=== PATIENT | female | born 1945 | race Caucasian/White ===

== ENCOUNTER 2021-05-25 14:50 | Inpatient (IN) | payer MEDICARE, OTHER ==
[~2021-05-25] VITALS: Ht 172.7 cm; Wt 49.9 kg
[2021-05-25 15:26] VITALS: BP 181/97
[2021-05-25] MEDS ORDERED: THYR90TA PO (15:45)
--- NOTE | 2021-05-25 15:45 | NUR ---
RECEIVED PT FORM SOH TO ARU, PT ON ROOM AIR, NO SIGNS OF RESP DISTRESS, NO REPORTS OF PAIN. PT HAS SWANN CATH IN PLACE, DRAINING YELLOW URINE. PT A/OX4, BED LOW AND LOCKED, CALL LIGHT WITHIN REACH, VS TAKEN, PT HAS TEWMP OF 99.4 AND BP 181/97. NOTIFIED.
[2021-05-25 19:47] VITALS: BP 143/73
--- NOTE | 2021-05-25 21:26 | NUR ---
Resting in bed upon initial rounds. AAOx4 Needs attended. Fall precautions maintained. Call aponte within reach. Siderails up for safety. Admitted for generalized weakness, frequent falls. Fernandes catheter intact draining well. Patient incontinent of BM. No BM noted this shift. VSS. BP 143/75 HR 92 Resp 18 Afebrile. 97% on RA. No complaints presented during shift.
[2021-05-26 08:00] VITALS: BP 117/82
[2021-05-26 16:00] VITALS: BP 161/89
[2021-05-26] MEDS ORDERED: ENOX40DI SQ (16:49)
[2021-05-26 20:00] VITALS: BP 155/83
[2021-05-26] MEDS: ACETAMINOPHEN 325 MG TABLET PO PRN (20:53)
[2021-05-27 04:00] VITALS: BP 162/83
--- NOTE | 2021-05-27 07:50 | NUR ---
received sleeping easily arousable. denies pain or sob. no complaints at this time. safety measures in place. kept comfortable. call light in reach and functional.
[2021-05-27 08:00] VITALS: BP 170/90
[2021-05-27] MEDS ORDERED: Medication Not On Formulary EA (Thyroid (Armour Thyroid) 90 MG) PO SCH (09:00)
[2021-05-27] MEDS: METOPROLOL TARTRATE 50 MG TABLET PO SCH ×2 (09:10→22:08)
[2021-05-27] MEDS: ENOXAPARIN SODIUM 40 MG/0.4 ML DISP.SYRIN SQ SCH (09:11)
[2021-05-27] MEDS ORDERED: hydrALAZINE HCL 25 MG TABLET PO PRN (09:15)
[2021-05-27 10:31] LABS: HEMATOCRIT 40.2 % (31.2-41.9); MEAN CORPUSCULAR VOLUME 89.5 fL (75.5-95.3); PLATELET COUNT (AUTO) 377 K/uL (179-408)
[2021-05-27 11:13] LABS: BILIRUBIN,TOTAL 0.6 mg/dL (0.2-1.0); CREATININE 0.8 mg/dL (0.6-1.3); MAGNESIUM 2.1 mg/dL (1.8-2.4); PHOSPHOROUS 3.2 mg/dL (2.5-4.9); POTASSIUM 3.5 mmol/L (3.5-5.1); TOTAL PROTEIN, SERUM 7.3 g/dL (6.4-8.2)
[2021-05-27 11:47] LABS: THYROID STIMULATING HORMONE 3.287 mIU/mL (0.358-3.740)
[2021-05-27 16:30] VITALS: BP 169/89
[2021-05-27] MEDS: ENSURE ENLIVE (VAN) 240 ML LIQUID PO SCH (17:38)
--- NOTE | 2021-05-27 18:20 | NUR ---
patient cooperative and compliant with plan of care. no acute distress. needs attended. cont to monitor.
[2021-05-27 20:08] VITALS: BP 116/60
[2021-05-27] MEDS: ACETAMINOPHEN 325 MG TABLET PO PRN (22:10)
[2021-05-27] MEDS ORDERED: ALBUTEROL SULFATE 2.5 MG/ 0.5 ML NEBU NEB PRN (23:30)
[2021-05-27] MEDS ORDERED: levoFLOXacin 500 MG TABLET PO ONE (23:30)
--- NOTE | 2021-05-28 03:53 | NUR ---
Received to care, lying in bed, pleasant upon approach. Medications given crushed with applesauce. Applesauce was given as a bedtime snack. Temp was elevated 100.7, Tylenol was given and it went down to 98.7. Levaquin was started, per MD orders. Fernandes catheter remains patent, draining clear and joe urine in adequate amounts, PO fluids given, and tolerated well. No distress noted.
[2021-05-28 04:05] VITALS: BP 136/71
[2021-05-28 07:30] VITALS: BP 148/69
[2021-05-28 08:16] LABS: *BILIRUBIN,URIN NEGATIVE (NEGATIVE); *COLOR,URINE YELLOW (YELLOW); *KETONES,URINE NEGATIVE (NEGATIVE); *UROBILINOGEN,URINE >=8.0 E.U./dl (NORMAL); LEUKOCYTE ESTERASE ,URINE NEGATIVE (NEGATIVE); NITRITE, URINE NEGATIVE (NEGATIVE); UGLUCOSE NEGATIVE (NEGATIVE)
[2021-05-28 08:17] LABS: *BLOOD, URINE TRACE (NEGATIVE); *CLARITY,URINE HAZY (CLEAR)
[2021-05-28 08:22] LABS: BACTERIA,URINE FEW /HPF (NONE SEEN); SQUAMOUS EPITHELIAL CELL,UR FEW /HPF (NONE SEEN)
[2021-05-28] MEDS: MULTIVITAMINS,THERAPEUTIC TABLET PO SCH (09:00)
[2021-05-28] MEDS: ENSURE ENLIVE (VAN) 240 ML LIQUID PO SCH (09:18)
[2021-05-28] MEDS: METOPROLOL TARTRATE 50 MG TABLET PO SCH ×3 (09:19→20:20)
[2021-05-28] MEDS: ENOXAPARIN SODIUM 40 MG/0.4 ML DISP.SYRIN SQ SCH (09:20)
--- NOTE | 2021-05-28 09:41 | NUR ---
Received PT resting in bed, pleasant upon approach. Receive a called fro DR An regarding UA /C/S lab collected UA specimen as ordered. Medications given crushed with applesauce. Levaquin was started, per MD orders in the nigh shift. Fernandes catheter remains patent, draining clear and joe urine in adequate amounts, PO fluids given, and tolerated well. No c/o of pain or distress noted at this time.
[2021-05-28] MEDS: THYROID 60 MG TABLET PO SCH (11:55)
--- NOTE | 2021-05-28 12:02 | NUR ---
SW Family Contact EVELYN met with patient's step son Kobe, , who had questions regarding Durable Power of [employer]. EVELYN explained the process of attaining a DPOA. Kobe called EVELYN and informed her that he has a notary coming in at 1 PM to notarize DPOA. Plan: EVELYN will assist with DPOA.
--- NOTE | 2021-05-28 14:27 | NUR ---
INDIVIDUALIZED PLAN OF CARE
[2021-05-28 15:54] VITALS: BP 126/61
[2021-05-28] MEDS: GLUCERNA SHAKE VANILLA 237 ML CAN PO SCH (16:49)
--- NOTE | 2021-05-28 20:15 | NUR ---
Patient refused Lopressor, stating that she's not taking that kind of medication despite explaining the risk and benefit. Will endorsed to Am nurse.
[2021-05-28] MEDS: levoFLOXacin 250 MG TABLET PO SCH (20:18)
[2021-05-28] MEDS: DOCUSATE SODIUM 100 MG CAPSULE PO SCH (20:18)
[2021-05-28 20:28] VITALS: BP 130/67
[2021-05-29 04:35] VITALS: BP 151/80
[2021-05-29] MEDS: THYROID 60 MG TABLET PO SCH (05:44)
[2021-05-29 07:30] VITALS: BP 157/78
[2021-05-29] MEDS: METOPROLOL TARTRATE 50 MG TABLET PO SCH ×2 (08:54→20:59)
[2021-05-29] MEDS: ENOXAPARIN SODIUM 40 MG/0.4 ML DISP.SYRIN SQ SCH (08:54)
[2021-05-29] MEDS: MULTIVITAMINS,THERAPEUTIC TABLET PO SCH (08:55)
[2021-05-29] MEDS: GLUCERNA SHAKE VANILLA 237 ML CAN PO SCH ×2 (08:55→17:10)
--- NOTE | 2021-05-29 11:11 | NUR ---
INTERDISCIPLINARY TEAM CONFERENCE
[2021-05-29 15:58] VITALS: BP 125/62
[2021-05-29 20:25] VITALS: BP 150/76
[2021-05-29] MEDS: DOCUSATE SODIUM 100 MG CAPSULE PO SCH (20:58)
[2021-05-29] MEDS: levoFLOXacin 250 MG TABLET PO SCH (20:58)
[2021-05-30 04:42] VITALS: BP 161/76
[2021-05-30] MEDS: THYROID 60 MG TABLET PO SCH (05:43)
[2021-05-30] MEDS: METOPROLOL TARTRATE 50 MG TABLET PO SCH ×2 (09:00→20:08)
[2021-05-30] MEDS: MULTIVITAMINS,THERAPEUTIC TABLET PO SCH (09:00)
[2021-05-30] MEDS: ENOXAPARIN SODIUM 40 MG/0.4 ML DISP.SYRIN SQ SCH (09:09)
[2021-05-30] MEDS: GLUCERNA SHAKE VANILLA 237 ML CAN PO SCH ×2 (09:10→17:20)
[2021-05-30 09:19] VITALS: BP 148/81
[2021-05-30 15:44] VITALS: BP 146/76
[2021-05-30 20:00] VITALS: BP 152/77
[2021-05-30] MEDS: levoFLOXacin 250 MG TABLET PO SCH (20:08)
[2021-05-30] MEDS: DOCUSATE SODIUM 100 MG/10 ML LIQUID UDC PO SCH (20:08)
[2021-05-31 04:00] VITALS: BP 146/74
[2021-05-31 08:00] VITALS: BP 148/99
[2021-05-31] MEDS: MULTIVITAMINS,THERAPEUTIC TABLET PO SCH (08:10)
[2021-05-31] MEDS: THYROID 60 MG TABLET PO SCH (08:11)
[2021-05-31] MEDS: GLUCERNA SHAKE VANILLA 237 ML CAN PO SCH ×2 (08:12→16:36)
[2021-05-31] MEDS: ENOXAPARIN SODIUM 40 MG/0.4 ML DISP.SYRIN SQ SCH (08:15)
[2021-05-31] MEDS: METOPROLOL TARTRATE 50 MG TABLET PO SCH ×2 (08:16→20:44)
[2021-05-31 15:08] VITALS: BP 136/73
--- NOTE | 2021-05-31 15:11 | NUR ---
Clinical Social Work Note EVELYN met with patient and step son Kobe at the [facility] gym. Patient presented SW with a copy of her Advanced Health Directive. Patient stated that she would like for it to be followed. The following people are listed in patient's advanced directives: Ivana Brady ([phone]), Kobe Brewster ([phone]), and Chad/Toby Perez ([phone]). SW will place copy of Advanced Directive in patient's chart.
--- NOTE | 2021-05-31 18:33 | NUR ---
Patient remained stable during the shift. no distress identified or pain. refused Lopressor in the am meds, md aware. FC intact, draining well. Kept call light within reach. All due meds given. all needs attended. Safety measures maintained. Will endorse to the next shift for continuity of care.
[2021-05-31 20:02] VITALS: BP 115/60
[2021-05-31] MEDS: DOCUSATE SODIUM 100 MG/10 ML LIQUID UDC PO SCH (20:30)
[2021-05-31] MEDS: levoFLOXacin 250 MG TABLET PO SCH (20:31)
[2021-06-01 04:00] VITALS: BP 148/80
[2021-06-01 06:20] LABS: CREATININE 0.6 mg/dL (0.6-1.3); POTASSIUM 4.1 mmol/L (3.5-5.1)
--- NOTE | 2021-06-01 06:22 | NUR ---
Received pt asleep on bed upon initial rounds. She is easily arousable for care, able to make needs known. Denies pain and discomfort. Due medications given except Lopressor d/t pt refusal. Risks and benefits explained, pt still refused. Slept throughout the night. All needs attended. Call light placed within reach. Frequent visual checks done.
[2021-06-01] MEDS: THYROID 60 MG TABLET PO SCH (06:30)
[2021-06-01 06:39] LABS: HEMATOCRIT 36.4 % (31.2-41.9); MEAN CORPUSCULAR HEMOGLOBIN 30.3 uug (24.7-32.8); MEAN CORPUSCULAR VOLUME 89.2 fL (75.5-95.3); PLATELET COUNT (AUTO) 575 K/uL (179-408)
[2021-06-01] MEDS: MULTIVITAMINS,THERAPEUTIC TABLET PO SCH (07:58)
[2021-06-01] MEDS: METOPROLOL TARTRATE 50 MG TABLET PO SCH ×2 (07:58→20:27)
[2021-06-01] MEDS: GLUCERNA SHAKE VANILLA 237 ML CAN PO SCH ×2 (07:58→16:32)
[2021-06-01 08:00] VITALS: BP 132/70
[2021-06-01] MEDS: ENOXAPARIN SODIUM 40 MG/0.4 ML DISP.SYRIN SQ SCH (08:27)
[2021-06-01 16:00] VITALS: BP 144/77
[2021-06-01 20:11] VITALS: BP 136/73
[2021-06-01] MEDS: levoFLOXacin 250 MG TABLET PO SCH (20:27)
[2021-06-01] MEDS: DOCUSATE SODIUM 100 MG/10 ML LIQUID UDC PO SCH (20:34)
[2021-06-02 04:16] VITALS: BP 132/61
[2021-06-02] MEDS: THYROID 60 MG TABLET PO SCH (06:32)
[2021-06-02 07:51] VITALS: BP 139/71
[2021-06-02] MEDS: METOPROLOL TARTRATE 50 MG TABLET PO SCH ×3 (08:01→20:33)
[2021-06-02] MEDS: MULTIVITAMINS,THERAPEUTIC TABLET PO SCH (08:01)
[2021-06-02] MEDS: ENOXAPARIN SODIUM 40 MG/0.4 ML DISP.SYRIN SQ SCH (08:01)
[2021-06-02] MEDS: GLUCERNA SHAKE VANILLA 237 ML CAN PO SCH ×2 (08:01→16:03)
[2021-06-02 15:30] VITALS: BP 133/69
[2021-06-02 20:11] VITALS: BP 135/63
[2021-06-02] MEDS: DOCUSATE SODIUM 100 MG/10 ML LIQUID UDC PO SCH (20:27)
--- NOTE | 2021-06-02 20:33 | NUR ---
Patient refused her Lopressor stating that shes's not taking this medication. Explained tp patient the benefits and risk but still she refused it.
[2021-06-03 04:50] VITALS: BP 149/72
[2021-06-03] MEDS: THYROID 60 MG TABLET PO SCH (05:43)
[2021-06-03] MEDS: MULTIVITAMINS,THERAPEUTIC TABLET PO SCH (08:00)
[2021-06-03] MEDS: METOPROLOL TARTRATE 50 MG TABLET PO SCH ×2 (08:00→20:32)
[2021-06-03] MEDS: ENOXAPARIN SODIUM 40 MG/0.4 ML DISP.SYRIN SQ SCH (08:00)
[2021-06-03] MEDS: GLUCERNA SHAKE VANILLA 237 ML CAN PO SCH ×2 (08:01→16:02)
[2021-06-03 08:03] VITALS: BP 150/75
[2021-06-03 16:08] VITALS: BP 131/71
[2021-06-03 20:03] VITALS: BP 137/69
[2021-06-03] MEDS: DOCUSATE SODIUM 100 MG/10 ML LIQUID UDC PO SCH (20:32)
[2021-06-04 04:03] VITALS: BP 137/66
[2021-06-04] MEDS: THYROID 60 MG TABLET PO SCH (05:37)
[2021-06-04 06:31] LABS: HEMATOCRIT 34.4 % (31.2-41.9); MEAN CORPUSCULAR HEMOGLOBIN 30.3 uug (24.7-32.8); MEAN CORPUSCULAR VOLUME 89.2 fL (75.5-95.3); PLATELET COUNT (AUTO) 653 K/uL (179-408)
[2021-06-04 06:37] LABS: CREATININE 0.7 mg/dL (0.6-1.3); POTASSIUM 3.7 mmol/L (3.5-5.1)
--- NOTE | 2021-06-04 07:19 | NUR ---
Received patient awake in bed, denies pain or sob. no complaints at this time. Safety measures in place, call light in reach and functional.
[2021-06-04 07:30] VITALS: BP 144/76
[2021-06-04] MEDS: GLUCERNA SHAKE VANILLA 237 ML CAN PO SCH ×2 (08:56→16:42)
[2021-06-04] MEDS: METOPROLOL TARTRATE 50 MG TABLET PO SCH (09:00)
[2021-06-04] MEDS: ENOXAPARIN SODIUM 40 MG/0.4 ML DISP.SYRIN SQ SCH (09:00)
[2021-06-04] MEDS: MULTIVITAMINS,THERAPEUTIC TABLET PO SCH (09:00)
[2021-06-04 16:00] VITALS: BP 144/75
--- NOTE | 2021-06-04 18:00 | NUR ---
Dr. An in the unit. Update given to MD and notified MD regarding patient's refusal of metoprolol and lovenox. Per MD discontinue metoprolol.
[2021-06-04 20:13] VITALS: BP 144/73
[2021-06-04] MEDS: DOCUSATE SODIUM 100 MG/10 ML LIQUID UDC PO SCH ×2 (20:24→20:25)
--- NOTE | 2021-06-04 20:25 | NUR ---
Colace was not given at this time, patient refused.
--- NOTE | 2021-06-04 22:52 | NUR ---
JONATAN c/s collected and sent to lab.
[2021-06-04 22:59] LABS: *BILIRUBIN,URIN NEGATIVE (NEGATIVE); *CLARITY,URINE CLEAR (CLEAR); *COLOR,URINE YELLOW (YELLOW); *KETONES,URINE NEGATIVE (NEGATIVE); *UROBILINOGEN,URINE 0.2 E.U./dl (NORMAL); LEUKOCYTE ESTERASE ,URINE NEGATIVE (NEGATIVE); NITRITE, URINE NEGATIVE (NEGATIVE); PH,URINE 6.5 (5.0-8.0); UGLUCOSE NEGATIVE (NEGATIVE)
[2021-06-04 23:00] LABS: *BLOOD, URINE TRACE (NEGATIVE); BACTERIA,URINE NONE SEEN /HPF (NONE SEEN); RBC,URINE 0-3 /HPF (0-3); SQUAMOUS EPITHELIAL CELL,UR FEW /HPF (NONE SEEN); WBC,URINE NONE SEEN /HPF (0-3)
[2021-06-05 04:00] VITALS: BP 140/83
[2021-06-05] MEDS: THYROID 60 MG TABLET PO SCH (05:46)
[2021-06-05 08:00] VITALS: BP 141/77
[2021-06-05] MEDS: GLUCERNA SHAKE VANILLA 237 ML CAN PO SCH ×2 (08:37→17:02)
[2021-06-05] MEDS: MULTIVITAMINS,THERAPEUTIC TABLET PO SCH (08:37)
[2021-06-05] MEDS: ENOXAPARIN SODIUM 40 MG/0.4 ML DISP.SYRIN SQ SCH (08:37)
--- NOTE | 2021-06-05 10:45 | NUR ---
Patient seen by Dr. Roper, update given to MD and received order to remove love catheter.
--- NOTE | 2021-06-05 11:45 | NUR ---
Fernandes catheter removed as ordered.
--- NOTE | 2021-06-05 13:50 | NUR ---
INTERDISCIPLINARY TEAM CONFERENCE
[2021-06-05 16:23] VITALS: BP 141/69
--- NOTE | 2021-06-05 18:04 | NUR ---
Patient voided freely in the toilet, no complain of any pain or discomfort.
--- NOTE | 2021-06-05 19:30 | NUR ---
Received patient lying in bed. AAOx4. In no acute distress. Denies any pain or SOB at this time. Needs assessed and attended to. Safety measure initiated and call light within reached.
[2021-06-05 20:00] VITALS: BP 138/74
[2021-06-05] MEDS: DOCUSATE SODIUM 100 MG/10 ML LIQUID UDC PO SCH (20:08)
[2021-06-06 04:00] VITALS: BP 147/79
--- NOTE | 2021-06-06 06:17 | NUR ---
Patient slept well last night. Needs attended to and met. Assisted to toilet with the use of FWW. Safety measure maintained.
[2021-06-06] MEDS: THYROID 60 MG TABLET PO SCH (06:35)
[2021-06-06 07:50] VITALS: BP 144/85
[2021-06-06] MEDS: ENOXAPARIN SODIUM 40 MG/0.4 ML DISP.SYRIN SQ SCH (08:15)
[2021-06-06] MEDS: MULTIVITAMINS,THERAPEUTIC TABLET PO SCH (08:15)
[2021-06-06] MEDS: GLUCERNA SHAKE VANILLA 237 ML CAN PO SCH ×2 (08:15→16:31)
[2021-06-06 14:56] VITALS: BP 149/75
--- NOTE | 2021-06-06 17:26 | NUR ---
patient is alert, oriented x3, no events noted during shift, no distress noted
[2021-06-06 20:00] VITALS: BP 156/70
[2021-06-06] MEDS: DOCUSATE SODIUM 100 MG/10 ML LIQUID UDC PO SCH (20:23)
[2021-06-07] MEDS: THYROID 60 MG TABLET PO SCH (06:31)
[2021-06-07] MEDS: ENOXAPARIN SODIUM 40 MG/0.4 ML DISP.SYRIN SQ SCH (08:22)
[2021-06-07] MEDS: MULTIVITAMINS,THERAPEUTIC TABLET PO SCH (08:22)
[2021-06-07] MEDS: GLUCERNA SHAKE VANILLA 237 ML CAN PO SCH (08:22)
[2021-06-07 09:58] VITALS: BP 148/72
--- NOTE | 2021-06-07 15:54 | NUR ---
dc orders received noted and carried out.dc instruction and education given to the pt .pt said she will follow up with her pcp in one week pt left the facility via ambulances in stable condition
== END 2021-06-07 16:00 | disposition home health service (06) | DRG 948 ==
PROVIDERS: ADMIT Physical Medicine & Rehabilitation Pain Medicine; ATTEND Physical Medicine & Rehabilitation Pain Medicine
DX: R53.1 Weakness (principal); D68.59 Other primary thrombophilia; D84.9 Immunodeficiency, unspecified; N39.0 Urinary tract infection, site not specified; E03.9 Hypothyroidism, unspecified; R53.82 Chronic fatigue, unspecified; J44.9 Chronic obstructive pulmonary disease, unspecified; I70.0 Atherosclerosis of aorta; I70.8 Atherosclerosis of other arteries; I71.9 Aortic aneurysm of unspecified site, without rupture; G43.909 Migraine, unspecified, not intractable, without status migrainosus; G89.29 Other chronic pain; M54.9 Dorsalgia, unspecified; Z87.891 Personal history of nicotine dependence; M47.816 Spondylosis without myelopathy or radiculopathy, lumbar region; R26.2 Difficulty in walking, not elsewhere classified; R01.1 Cardiac murmur, unspecified; I11.9 Hypertensive heart disease without heart failure; I25.10 Atherosclerotic heart disease of native coronary artery without angina pectoris; M19.90 Unspecified osteoarthritis, unspecified site; M48.00 Spinal stenosis, site unspecified; R29.6 Repeated falls; Z88.0 Allergy status to penicillin; Z88.2 Allergy status to sulfonamides; Z91.018 Allergy to other foods
CPT/HCPCS: 36415; 71045; 83550; 83735; 84100; 84443; 85025; 87086; 97161; 97535-GO-CO; J1650